=== PATIENT | male | born 1970 | race Caucasian/White ===

== ENCOUNTER 2018-09-19 10:42 | Inpatient (IN) | payer OTHER ==
[~2018-09-19] VITALS: Ht 185.4 cm; Wt 154.2 kg
[2018-09-19] MEDS ORDERED: IV NORMAL SALINE 1000ML BAG 1,000 ML IV SCH (11:18)
[2018-09-19 11:28] LABS: BASO # 0.1 x10^3/uL (0.0-0.2); BASO % 1 % (0-3); EOS # 0.3 x10^3/uL (0.0-0.7); EOS % 3 % (0-3); HEMATOCRIT 41.8 % (39.0-53.0); HEMOGLOBIN 14.2 g/dL (13.0-17.5); LYMPH # 1.6 x10^3/uL (1.0-4.8); LYMPH % 13 % (24-48); MEAN CORPUSCULAR HEMOGLOBIN 33 pg (25-35); MEAN CORPUSCULAR HGB CONC 34 g/dL (31-37); MEAN CORPUSCULAR VOLUME 98 fL (79-100); MONO # 0.9 x10^3/uL (0.0-1.1); MONO % 8 % (0-9); NEUT # 8.9 x10^3uL (1.8-7.7); NEUT % 75 % (31-73); PLATELET COUNT 305 x10^3/uL (140-400); RED BLOOD COUNT 4.29 x10^6/uL (4.30-5.70); RED CELL DISTRIBUTION WIDTH 13.8 % (11.5-14.5); WHITE BLOOD COUNT 11.9 x10^3/uL (4.0-11.0)
--- NOTE | 2018-09-19 11:28 | PHYS DOC ---
Past Medical History Past Medical History: Hypertension Past Surgical History: Other Additional Past Surgical Histo: hand surgery Alcohol Use: None Drug Use: None Adult General Chief Complaint Chief Complaint: ABSCESS HPI HPI patient is a 48-year-old male who presents to the emergency department for evaluation. He states for the past week, he has had gradually worsening perineal pain. He saw his primary care provider about a week ago who thought he had a gluteal strain, but the patient began running fevers over the past 2 days. He saw his primary care provider today and was sent to the emergency department for evaluation of a perirectal abscess. The patient denies any purulent drainage, but states he did have a small amount of blood when wiping himself after having a bowel movement being yesterday. He has not had any painful bowel movements. He denies any abdominal pain, nausea, or vomiting. He denies any definite injuries. There are no alleviating, or exacerbating factors to his symptoms otherwise. Review of Systems Review of Systems Constitutional: Denies weight loss, fatigue, or dizziness.[] Eyes: Denies change in visual acuity, redness, or eye pain [] HENT: Denies nasal congestion or sore throat [] Respiratory: Denies cough or shortness of breath [] Cardiovascular: The patient denies any shortness of breath, chest pain, palpitations, or orthopnea. [] GI: Denies abdominal pain, nausea, vomiting, bloody stools or diarrhea [] : Denies dysuria or hematuria. Reports perineal pain, as per history of present illness. [] Musculoskeletal: Denies back pain or joint pain [] Integument: Denies rash or skin lesions [] Neurologic: Denies headache, focal weakness or sensory changes [] Endocrine: Denies polyuria or polydipsia [] All other systems were reviewed and found to be within normal limits, except as documented in this note. Current Medications Current Medications Current Medications Medications (Trade) Dose Ordered Sig/Darrick Start Time Stop Time Status Last Admin Dose Admin Ciprofloxacin/ Dextrose 200 ml @ 200 mls/hr 1X ONCE 09/19/18 11:30 09/19/18 12:29 DC 09/19/18 11:57 200 MLS/HR Info (CONTRAST GIVEN -- Rx MONITORING) 1 each PRN DAILY PRN 09/19/18 11:45 09/21/18 11:44 Iohexol (Omnipaque 300 Mg/ml) 75 ml 1X ONCE 09/19/18 11:30 09/19/18 11:31 DC 09/19/18 11:30 75 ML Metronidazole 100 ml @ 100 mls/hr 1X ONCE 09/19/18 11:30 09/19/18 12:29 DC 09/19/18 11:56 100 MLS/HR Morphine Sulfate (Morphine Sulfate) 4 mg PRN Q15MIN PRN 09/19/18 11:30 09/20/18 11:29 09/19/18 11:55 4 MG Sodium Chloride 1,000 ml @ 100 mls/hr Q10H 09/19/18 11:18 09/19/18 21:17 09/19/18 11:18 100 MLS/HR Allergies Allergies Allergies Coded Allergies Type Severity Reaction Last Updated Verified No Known Drug Allergies 09/19/18 No Physical Exam Physical Exam PHYSICAL EXAM: CONSTITUTIONAL: Well developed, well nourished HEAD: normocephalic, atraumatic EENT: PERRL, EOMI. Conjunctivae normal color, sclerae non-icteric; moist mucous membranes. NECK: Supple, non-tender; no meningismus. LUNGS: Lungs CTA, breathing even and unlabored. Normal air movement. HEART: Regular rate and rhythm, no murmur CHEST: No deformity; non-tender ABDOMEN: The abdomen is soft, and non-tender, no masses or bruits. EXTREM: Normal ROM; no deformity, no calf tenderness. Normal pulses palpable in all extremities. There is no pedal edema. SKIN: No rash; no diaphoresis NEURO: Alert; normal speech and cognition; CN's grossly intact; strength grossly intact without focal deficit. BACK: No CVA TTP. GENITOURINARY: Male genitalia are unremarkable. The scrotum is nontender and nonerythematous. On the anterior and left anterior perianal area, there is mild skin erythema, and soft tissue swelling, with tenderness to palpation, suggestive of the perianal and possible perirectal abscess. There is no definite fluctuance or significant tenderness to palpation of the perirectal tissues on rectal exam. Current Patient Data Vital Signs Vital Signs Date Time Temp Pulse Resp B/P (MAP) Pulse Ox O2 Delivery O2 Flow Rate FiO2 09/19/18 11:55 98 Room Air 09/19/18 11:04 97.6 114 20 174/81 (112) 97.6 Lab Values Laboratory Tests Test 09/19/18 11:18 White Blood Count 11.9 x10^3/uL (4.0-11.0) H Red Blood Count 4.29 x10^6/uL (4.30-5.70) L Hemoglobin 14.2 g/dL (13.0-17.5) Hematocrit 41.8 % (39.0-53.0) Mean Corpuscular Volume 98 fL (79-100) Mean Corpuscular Hemoglobin 33 pg (25-35) Mean Corpuscular Hemoglobin Concent 34 g/dL (31-37) Red Cell Distribution Width 13.8 % (11.5-14.5) Platelet Count 305 x10^3/uL (140-400) Neutrophils (%) (Auto) 75 % (31-73) H Lymphocytes (%) (Auto) 13 % (24-48) L Monocytes (%) (Auto) 8 % (0-9) Eosinophils (%) (Auto) 3 % (0-3) Basophils (%) (Auto) 1 % (0-3) Neutrophils # (Auto) 8.9 x10^3uL (1.8-7.7) H Lymphocytes # (Auto) 1.6 x10^3/uL (1.0-4.8) Monocytes # (Auto) 0.9 x10^3/uL (0.0-1.1) Eosinophils # (Auto) 0.3 x10^3/uL (0.0-0.7) Basophils # (Auto) 0.1 x10^3/uL (0.0-0.2) Sodium Level 138 mmol/L (136-145) Potassium Level 3.2 mmol/L (3.5-5.1) L Chloride Level 97 mmol/L (98-107) L Carbon Dioxide Level 30 mmol/L (21-32) Anion Gap 11 (6-14) Blood Urea Nitrogen 19 mg/dL (8-26) Creatinine 1.6 mg/dL (0.7-1.3) H Estimated GFR (Cockcroft-Gault) 46.8 BUN/Creatinine Ratio 12 (6-20) Glucose Level 106 mg/dL (70-99) H Calcium Level 9.6 mg/dL (8.5-10.1) Total Bilirubin 0.6 mg/dL (0.2-1.0) Aspartate Amino Transferase (AST) 14 U/L (15-37) L Alanine Aminotransferase (ALT) 24 U/L (16-63) Alkaline Phosphatase 80 U/L (46-116) Total Protein 8.0 g/dL (6.4-8.2) Albumin 3.1 g/dL (3.4-5.0) L Albumin/Globulin Ratio 0.6 (1.0-1.7) L Laboratory Tests 09/19/18 11:18 Laboratory Tests 09/19/18 11:18 EKG EKG [] Radiology/Procedures Radiology/Procedures [PROCEDURE: CT PELVIS W/CONTRAST CT of the pelvis with contrast, 09/19/2018: HISTORY: Left perirectal abscess Multidetector CT imaging was performed following an IV bolus injection of iodinated contrast material. No oral contrast material was administered for this study. There is a poorly marginated low density process in the perineum on the left centered along the anterolateral margin of the anus and distal rectum. It measures approximately 6.7 cm in greatest AP dimension, 4 cm in width and 8.7 cm in craniocaudad extent. Its internal density suggests complex fluid such as an abscess. There is mild adjacent streaky subcutaneous edema. No associated gas collections are seen. No iliac or inguinal adenopathy is evident. The bowel loops are not dilated. The urinary bladder is unremarkable. Several prostatic calcifications are noted. No free fluid or free air is evident in the pelvis. Surgical clips related to the upper scrotum are compatible with a prior vasectomy. IMPRESSION: Moderate sized left perirectal fluid collection as described above, compatible with the clinical impression of abscess. ] Course & Med Decision Making Course & Med Decision Making Pertinent Labs and Imaging studies reviewed. (See chart for details) 1:50 PM: The patient's condition remained stable. I spoke with Dr. Langford, Gen. surgery, who requested that the hospitalist admit the patient and he will see the patient in consultation. The hospitalist has been paged for admission. [] Dragon Disclaimer Dragon Disclaimer This electronic medical record was generated, in whole or in part, using a voice recognition dictation system. Departure Departure Impression: Primary Impression: Perirectal abscess Disposition: 09 ADMITTED INPATIENT Admitting Physician: Other Condition: STABLE Referrals: UNKNOWN PCP NAME (PCP) ISAAC SCHAFER MD Sep 19, 2018 11:28
[2018-09-19] MEDS ORDERED: CIPROFLOXACIN 400MG PREMIX 200 ML IV ONE (11:30)
[2018-09-19] MEDS ORDERED: IOHEXOL 300 MG/ML 100ML VIAL. IV ONE (11:30)
[2018-09-19] MEDS ORDERED: CONTRAST GIVEN. MC PRN (11:45)
[2018-09-19 11:50] LABS: CALCIUM 9.6 mg/dL (8.5-10.1); CREATININE 1.6 mg/dL (0.7-1.3); GFR 46.8; POTASSIUM 3.2 mmol/L (3.5-5.1)
[2018-09-19 11:55] LABS: ALBUMIN 3.1 g/dL (3.4-5.0); ALBUMIN/GLOBULIN RATIO 0.6 (1.0-1.7); TOTAL BILIRUBIN 0.6 mg/dL (0.2-1.0)
[2018-09-19] MEDS: MORPHINE SULFATE 4 MG/ML VIAL. IV/SQ PRN ×2 (11:55→13:54)
--- NOTE | 2018-09-19 12:47 | RAD ---
CT of the pelvis with contrast, 09/19/2018: HISTORY: Left perirectal abscess Multidetector CT imaging was performed following an IV bolus injection of iodinated contrast material. No oral contrast material was administered for this study. There is a poorly marginated low density process in the perineum on the left centered along the anterolateral margin of the anus and distal rectum. It measures approximately 6.7 cm in greatest AP dimension, 4 cm in width and 8.7 cm in craniocaudad extent. Its internal density suggests complex fluid such as an abscess. There is mild adjacent streaky subcutaneous edema. No associated gas collections are seen. No iliac or inguinal adenopathy is evident. The bowel loops are not dilated. The urinary bladder is unremarkable. Several prostatic calcifications are noted. No free fluid or free air is evident in the pelvis. Surgical clips related to the upper scrotum are compatible with a prior vasectomy. IMPRESSION: Moderate sized left perirectal fluid collection as described above, compatible with the clinical impression of abscess. Electronically signed by: Everton Petty MD (09/19/2018 12:44 PM) [facility]
--- NOTE | 2018-09-19 14:13 | PDOC1 ---
History and Physical Date of Admission Date of Admission DATE: 09/19/18 TIME: 14:09 Identification/Chief Complaint Chief Complaint Rectal pain Source Source: Patient History of Present Illness History of Present Illness 48-year-old male w/ PMHx HTN, morbid obesity p/w left gluteal and perineal pain. For 1 week has had gradually worsening perineal pain. Saw his PCP a week ago who thought he had a gluteal strain, but the patient began running fevers over the past 2 days. He returned to his PCP today and was sent to the ED for concern of a perirectal abscess. The patient denies any purulent drainage, but states he did have a small amount of blood when wiping himself after having a bowel movement being yesterday. No abdominal pain, nausea, or vomiting. No precipitating event. There are no alleviating, or exacerbating factors to his symptoms otherwise. Pain is rated a 2/10 when he lays on his right side, but 10/ 10 when he moves or is seated/standing/on his left side. On CT scan he was noted with a moderate-large left herminia-rectal fluid collection. ED has consulted general surgery for I&D. He was noted tachycardic 114bpm, WBC 11.9, given IVF 30cc/kg/hr and placed on cipro and flagyll by ED and will be admitted for further care. He is a senior project controls specialist by [employer], lives with his and 3 teenage children. Ex-smoker, social drinker, no drugs of abuse. Past Medical History Cardiovascular: HTN GI: No pertinent hx Heme/Onc: No pertinent hx Hepatobiliary: No pertinent hx Psych: No pertinent hx Rheumatologic: No pertinent hx Infectious disease: No pertinent hx ENT: No pertinent hx Renal/: No pertinent hx Endocrine: No pertinent hx Dermatology: No pertinent hx Past Surgical History Past Surgical History: Other (Ganglion cyst removal R hand, wisdom teeth removal, no abnormal bleeding, no anesthesia complications) Family History Family History: Cancer (Breast and testicular), Hypertension Family History: Parent (Mother - breast cancer, Father - testicular cancer, HTN ) Social History Smoke: Quit (13 years quit) ALCOHOL: rare Drugs: None Current Problem List Problem List Problems Medical Problems: (1) Perirectal abscess Status: Acute Current Medications Current Medications Current Medications Morphine Sulfate (Morphine Sulfate) 4 mg PRN Q15MIN PRN IV/SQ PAIN GREATER THAN 3/10 Last administered on 09/19/18at 13:54; Start 09/19/18 at 11:30; Stop 09/20/18 at 11:29 Sodium Chloride 1,000 ml @ 100 mls/hr Q10H IV Last administered on 09/19/18at 11:18; Start 09/19/18 at 11:18; Stop 09/19/18 at 21:17 Ciprofloxacin/ Dextrose 200 ml @ 200 mls/hr 1X ONCE IV Last administered on 09/19/18at 11:57; Start 09/19/18 at 11:30; Stop 09/19/18 at 12:29; Status DC Metronidazole 100 ml @ 100 mls/hr 1X ONCE IV Last administered on 09/19/18at 11:56; Start 09/19/18 at 11:30; Stop 09/19/18 at 12:29; Status DC Iohexol (Omnipaque 300 Mg/ml) 75 ml 1X ONCE IV Last administered on at 11:30; Start 09/19/18 at 11:30; Stop 09/19/18 at 11:31; Status DC Info (CONTRAST GIVEN -- Rx MONITORING) 1 each PRN DAILY PRN MC SEE COMMENTS; Start 09/19/18 at 11:45; Stop 09/21/18 at 11:44 Allergies Allergies: Coded Allergies: No Known Drug Allergies (Unverified , 09/19/18) ROS General: YES: Chills, Night Sweats PSYCHOLOGICAL ROS: No: Anxiety, Behavioral Disorder, Concentration difficultie , Decreased libido, Depression, Disorientation, Hallucinations, Hostility, Irritablity, Memory difficulties, Mood Swings, Obsessive thoughts, Physical abuse, Sexual abuse, Sleep disturbances, Suicidal ideation, Other Eyes: Yes Itchy Eyes; No Blurry vision, No Decreased vision, No Double vision, No Dry eyes, No Excessive tearing, No Eye Pain, No Loss of vision, No Photophobia, No Scotomata , No Uses contacts, No Uses glasses, No Other HEENT: No: Heacaches, Visual Changes, Hearing change, Nasal congestion, Nasal discharge, Oral lesions, Sinus pain, Sore Throat, Epistaxis, Sneezing, Snoring, Tinnitus, Vertigo, Vocal changes, Other ALLERGY AND IMMUNOLOGY: No: Hives, Insect Bite Sensitivity, Itchy/Watery Eyes, Nasal Congestion, Post Nasal Drip, Seasonal Allergies, Other Hematological and Lymphatic: No: Bleeding Problems, Blood Clots, Blood Transfusions, Brusing, Night Sweats, Pallor, Swollen Lymph Nodes, Other ENDOCRINE: No: Breast Changes, Galactorrhea, Hair Pattern Changes, Hot Flashes , Malaise/lethargy, Mood Swings, Palpitations, Polydipsia/polyuria, Skin Changes , Temperature Intolerance, Unexpected Weight Changes, Other Breast: No New/Changing Breast Lumps, No Nipple changes, No Nipple discharge, No Other Respiratory: No: Cough, Hemoptysis, Orthopnea, Pleuritic Pain, Shortness of breath, SOB with excertion, Sputum Changes, Stridor, Tachypnea, Wheezing, Other Cardiovascular: No Chest Pain, No Palpitations, No Orthopnea, No Paroxysmal Noc. Dyspnea, No Edema, No Lt Headedness, No Other Gastrointestinal: No Nausea, No Vomiting, No Abdominal Pain, No Diarrhea, No Constipation, No Melena, No Hematochezia, No Other Genitourinary: No Dysuria, No Frequency, No Incontinence, No Hematuria, No Retention, No Discharge, No Urgency, No Pain, No Flank Pain, No Other, No , No , No , No , No , No , No Musculoskeletal: No Gait Disturbance, No Joint Pain, No Joint Stiffness, No Joint Swelling, No Muscle Pain, No Muscular Weakness, No Pain In:, No Swelling In:, No Other Neurological: No Behavorial Changes, No Bowel/Bladder ControlChng, No Confusion , No Dizziness, No Gait Disturbance, No Headaches, No Impaired Coord/balance, No Memory Loss, No Numbness/Tingling, No Seizures, No Speech Problems, No Tremors, No Visual Changes, No Weakness, No Other Skin: Yes Lumps, Yes Skin Lesion Changes; No Dry Skin, No Eczema, No Hair Changes, No Mole Changes, No Mottling, No Nail Changes, No Pruritus, No Rash, No Other, No Acne Physical Exam General: Alert, Oriented X3, Cooperative, No acute distress HEENT: PERRLA Lungs: Clear to auscultation, Normal air movement Heart: S1S2, RRR, no murmurs Abdomen: Normal bowel sounds, Soft, No tenderness, No hepatosplenomegaly, No masses Male Genitals Exam: normal genitalia, normal prostate Rectal Exam: mass (Left perirectal fluctuant, exquisitely painful, red) Extremities: No clubbing, No cyanosis, No edema, Normal pulses, No tenderness/ swelling Skin: No rashes, No breakdown, No significant lesion, Other (Above perirectal mass/red) Neuro: Normal gait, Normal speech, Strength at 5/5 X4 ext, Normal tone, Sensation intact, Cranial nerves 3-12 NL, Reflexes 2+ Psych/Mental Status: Mental status NL, Mood NL Vitals Vitals Vital Signs Date Time Temp Pulse Resp B/P (MAP) Pulse Ox O2 Delivery O2 Flow Rate FiO2 09/19/18 11:55 98 Room Air 09/19/18 11:04 97.6 114 20 174/81 (112) 97.6 Labs Labs Laboratory Tests Test 09/19/18 11:18 White Blood Count 11.9 x10^3/uL (4.0-11.0) Red Blood Count 4.29 x10^6/uL (4.30-5.70) Hemoglobin 14.2 g/dL (13.0-17.5) Hematocrit 41.8 % (39.0-53.0) Mean Corpuscular Volume 98 fL (79-100) Mean Corpuscular Hemoglobin 33 pg (25-35) Mean Corpuscular Hemoglobin Concent 34 g/dL (31-37) Red Cell Distribution Width 13.8 % (11.5-14.5) Platelet Count 305 x10^3/uL (140-400) Neutrophils (%) (Auto) 75 % (31-73) Lymphocytes (%) (Auto) 13 % (24-48) Monocytes (%) (Auto) 8 % (0-9) Eosinophils (%) (Auto) 3 % (0-3) Basophils (%) (Auto) 1 % (0-3) Neutrophils # (Auto) 8.9 x10^3uL (1.8-7.7) Lymphocytes # (Auto) 1.6 x10^3/uL (1.0-4.8) Monocytes # (Auto) 0.9 x10^3/uL (0.0-1.1) Eosinophils # (Auto) 0.3 x10^3/uL (0.0-0.7) Basophils # (Auto) 0.1 x10^3/uL (0.0-0.2) Sodium Level 138 mmol/L (136-145) Potassium Level 3.2 mmol/L (3.5-5.1) Chloride Level 97 mmol/L (98-107) Carbon Dioxide Level 30 mmol/L (21-32) Anion Gap 11 (6-14) Blood Urea Nitrogen 19 mg/dL (8-26) Creatinine 1.6 mg/dL (0.7-1.3) Estimated GFR (Cockcroft-Gault) 46.8 BUN/Creatinine Ratio 12 (6-20) Glucose Level 106 mg/dL (70-99) Calcium Level 9.6 mg/dL (8.5-10.1) Total Bilirubin 0.6 mg/dL (0.2-1.0) Aspartate Amino Transf (AST/SGOT) 14 U/L (15-37) Alanine Aminotransferase (ALT/SGPT) 24 U/L (16-63) Alkaline Phosphatase 80 U/L (46-116) Total Protein 8.0 g/dL (6.4-8.2) Albumin 3.1 g/dL (3.4-5.0) Albumin/Globulin Ratio 0.6 (1.0-1.7) Laboratory Tests Test 09/19/18 11:18 White Blood Count 11.9 x10^3/uL (4.0-11.0) Red Blood Count 4.29 x10^6/uL (4.30-5.70) Hemoglobin 14.2 g/dL (13.0-17.5) Hematocrit 41.8 % (39.0-53.0) Mean Corpuscular Volume 98 fL (79-100) Mean Corpuscular Hemoglobin 33 pg (25-35) Mean Corpuscular Hemoglobin Concent 34 g/dL (31-37) Red Cell Distribution Width 13.8 % (11.5-14.5) Platelet Count 305 x10^3/uL (140-400) Neutrophils (%) (Auto) 75 % (31-73) Lymphocytes (%) (Auto) 13 % (24-48) Monocytes (%) (Auto) 8 % (0-9) Eosinophils (%) (Auto) 3 % (0-3) Basophils (%) (Auto) 1 % (0-3) Neutrophils # (Auto) 8.9 x10^3uL (1.8-7.7) Lymphocytes # (Auto) 1.6 x10^3/uL (1.0-4.8) Monocytes # (Auto) 0.9 x10^3/uL (0.0-1.1) Eosinophils # (Auto) 0.3 x10^3/uL (0.0-0.7) Basophils # (Auto) 0.1 x10^3/uL (0.0-0.2) Sodium Level 138 mmol/L (136-145) Potassium Level 3.2 mmol/L (3.5-5.1) Chloride Level 97 mmol/L (98-107) Carbon Dioxide Level 30 mmol/L (21-32) Anion Gap 11 (6-14) Blood Urea Nitrogen 19 mg/dL (8-26) Creatinine 1.6 mg/dL (0.7-1.3) Estimated GFR (Cockcroft-Gault) 46.8 BUN/Creatinine Ratio 12 (6-20) Glucose Level 106 mg/dL (70-99) Calcium Level 9.6 mg/dL (8.5-10.1) Total Bilirubin 0.6 mg/dL (0.2-1.0) Aspartate Amino Transf (AST/SGOT) 14 U/L (15-37) Alanine Aminotransferase (ALT/SGPT) 24 U/L (16-63) Alkaline Phosphatase 80 U/L (46-116) Total Protein 8.0 g/dL (6.4-8.2) Albumin 3.1 g/dL (3.4-5.0) Albumin/Globulin Ratio 0.6 (1.0-1.7) VTE Prophylaxis Ordered VTE Prophylaxis Devices: Yes VTE Pharmacological Prophylaxi: No Assessment/Plan Assessment/Plan A/P: Perirectal abscess - with signs of early sepsis with leukocytosis, tachycardia and fever and chills at home. To OR today for I&D, low cardiac risk for low risk surgery. Non-smoker less than age 50, no CAD in 1st degree relatives, managed HTN on meds. Antibiotics may need to be adjusted to cover for strep and staph, will f/u on cultures from OR HTN - will cont home meds Morbid obesity - counseled on weight loss, diet, exercise. IFG/Prediabetes - last A1c was 5.9, recommend new AACE guidelines to consider metformin therapy or orlistat, will check glucose and cover with low sliding scale as necessary FEN - NPO for OR - general diet when ok by surgery PPX - Heparin 4 hours post-op vs SCDs if he is able to ambulate FULL CODE Wards for at least 2 midnights for perirectal abscess with signs of cellulitis and sepsis HARIKA ANTHONY MD Sep 19, 2018 14:12
[2018-09-19] MEDS ORDERED: BUPIVAC MPF-EPI 0.5%-1:200000 30 ML VIAL. ONE (14:16)
[2018-09-19] MEDS ORDERED: IV DEXTROSE 5%-LACT RINGERS 1,000 ML IV ONE (14:30)
[2018-09-19] MEDS ORDERED: ONDANSETRON PF 4 MG/2 ML VIAL. ONE (15:07)
[2018-09-19] MEDS ORDERED: DEXAMETHASONE SOD PHOS 20 MG/5 ML VIAL. ONE (15:07)
[2018-09-19] MEDS ORDERED: fentaNYL PF VIAL 100 MCG/2 ML VIAL ONE (15:07)
[2018-09-19] MEDS ORDERED: FAMOTIDINE 20 MG/2 ML VIAL ONE (15:07)
[2018-09-19] MEDS ORDERED: LIDOCAINE 1% PF 5 ML VIAL. ONE ×2 (15:07→15:29)
[2018-09-19] MEDS ORDERED: PROPOFOL 20 ML IV ONE (15:07)
[2018-09-19] MEDS ORDERED: SUCCINYLCHOLINE 200 MG/10 ML VIAL. ONE (15:07)
--- NOTE | 2018-09-19 15:17 | PDOC2 ---
CONSULT Date of Consult Date of Consult DATE: 09/19/18 TIME: 15:13 Reason for Consult Reason for Consult: Left perirectal abscess Referring Physician Referring Physician: Marissa Identification/Chief Complaint Chief Complaint buttock pain Source Source: Chart review, Patient History of Present Illness Reason for Visit: 48 yo M with 2 week hx of perianal pain, worsening. Noted fevers in afternoon. No significant drainage. No previous episodes. Past Medical History Cardiovascular: HTN Past Surgical History Past Surgical History: Other (hand surgery, vascectomy) Family History Family History: No Significant Social History No ALCOHOL: other (1 unit per day) Current Problem List Problem List Problems Medical Problems: (1) Perirectal abscess Status: Acute Current Medications Current Medications Current Medications Morphine Sulfate (Morphine Sulfate) 4 mg PRN Q15MIN PRN IV/SQ PAIN GREATER THAN 3/10 Last administered on 09/19/18at 13:54; Start 09/19/18 at 11:30; Stop 09/20/18 at 11:29 Sodium Chloride 1,000 ml @ 100 mls/hr Q10H IV Last administered on 09/19/18at 11:18; Start 09/19/18 at 11:18; Stop 09/19/18 at 21:17 Ciprofloxacin/ Dextrose 200 ml @ 200 mls/hr 1X ONCE IV Last administered on 09/19/18at 11:57; Start 09/19/18 at 11:30; Stop 09/19/18 at 12:29; Status DC Metronidazole 100 ml @ 100 mls/hr 1X ONCE IV Last administered on 09/19/18at 11:56; Start 09/19/18 at 11:30; Stop 09/19/18 at 12:29; Status DC Iohexol (Omnipaque 300 Mg/ml) 75 ml 1X ONCE IV Last administered on at 11:30; Start 09/19/18 at 11:30; Stop 09/19/18 at 11:31; Status DC Info (CONTRAST GIVEN -- Rx MONITORING) 1 each PRN DAILY PRN MC SEE COMMENTS; Start 09/19/18 at 11:45; Stop 09/21/18 at 11:44 Morphine Sulfate (Morphine Sulfate) 4 mg PRN Q2HR PRN IV PAIN; Start 09/19/18 at 14:15; Stop 09/20/18 at 14:14 Dextrose/Lactated Ringer's 1,000 ml @ 125 mls/hr 1X ONCE IV ; Start 09/19/18 at 14:30; Stop 09/19/18 at 22:29 Propofol 20 ml @ As Directed STK-MED ONCE IV ; Start 09/19/18 at 15:07; Stop 09/19/18 at 15:08; Status DC Ondansetron HCl (Zofran) 4 mg STK-MED ONCE .ROUTE ; Start 09/19/18 at 15:07; Stop 09/19/18 at 15:08; Status DC Dexamethasone Sodium Phosphate (Decadron) 20 mg STK-MED ONCE .ROUTE ; Start at 15:07; Stop 09/19/18 at 15:08; Status DC Famotidine (Pepcid Vial) 20 mg STK-MED ONCE .ROUTE ; Start 09/19/18 at 15:07; Stop 09/19/18 at 15:08; Status DC Fentanyl Citrate (Fentanyl 2ml Vial) 100 mcg STK-MED ONCE .ROUTE ; Start at 15:07; Stop 09/19/18 at 15:08; Status DC Succinylcholine Chloride (Anectine) 200 mg STK-MED ONCE .ROUTE ; Start at 15:07; Stop 09/19/18 at 15:08; Status DC Lidocaine HCl (Xylocaine-Mpf 1% 5ml Vial) 5 ml STK-MED ONCE .ROUTE ; Start at 15:07; Stop 09/19/18 at 15:08; Status DC Allergies Allergies: Coded Allergies: No Known Drug Allergies (Unverified , 09/19/18) ROS Gastrointestinal: Yes Abdominal Pain Physical Exam General: Alert, Oriented X3, Cooperative, No acute distress HEENT: Atraumatic Lungs: Normal air movement Abdomen: Soft, No tenderness, Other (rectal exam deferred) Extremities: No clubbing, No cyanosis Skin: No rashes, No breakdown Neuro: Normal speech, Sensation intact Psych/Mental Status: Mental status NL, Mood NL Vitals VITALS Vital Signs Date Time Temp Pulse Resp B/P (MAP) Pulse Ox O2 Delivery O2 Flow Rate FiO2 09/19/18 15:05 98.1 98 20 110/70 99 Room Air 98.1 Labs Labs Laboratory Tests Test 09/19/18 11:18 White Blood Count 11.9 x10^3/uL (4.0-11.0) Red Blood Count 4.29 x10^6/uL (4.30-5.70) Hemoglobin 14.2 g/dL (13.0-17.5) Hematocrit 41.8 % (39.0-53.0) Mean Corpuscular Volume 98 fL (79-100) Mean Corpuscular Hemoglobin 33 pg (25-35) Mean Corpuscular Hemoglobin Concent 34 g/dL (31-37) Red Cell Distribution Width 13.8 % (11.5-14.5) Platelet Count 305 x10^3/uL (140-400) Neutrophils (%) (Auto) 75 % (31-73) Lymphocytes (%) (Auto) 13 % (24-48) Monocytes (%) (Auto) 8 % (0-9) Eosinophils (%) (Auto) 3 % (0-3) Basophils (%) (Auto) 1 % (0-3) Neutrophils # (Auto) 8.9 x10^3uL (1.8-7.7) Lymphocytes # (Auto) 1.6 x10^3/uL (1.0-4.8) Monocytes # (Auto) 0.9 x10^3/uL (0.0-1.1) Eosinophils # (Auto) 0.3 x10^3/uL (0.0-0.7) Basophils # (Auto) 0.1 x10^3/uL (0.0-0.2) Sodium Level 138 mmol/L (136-145) Potassium Level 3.2 mmol/L (3.5-5.1) Chloride Level 97 mmol/L (98-107) Carbon Dioxide Level 30 mmol/L (21-32) Anion Gap 11 (6-14) Blood Urea Nitrogen 19 mg/dL (8-26) Creatinine 1.6 mg/dL (0.7-1.3) Estimated GFR (Cockcroft-Gault) 46.8 BUN/Creatinine Ratio 12 (6-20) Glucose Level 106 mg/dL (70-99) Calcium Level 9.6 mg/dL (8.5-10.1) Total Bilirubin 0.6 mg/dL (0.2-1.0) Aspartate Amino Transf (AST/SGOT) 14 U/L (15-37) Alanine Aminotransferase (ALT/SGPT) 24 U/L (16-63) Alkaline Phosphatase 80 U/L (46-116) Total Protein 8.0 g/dL (6.4-8.2) Albumin 3.1 g/dL (3.4-5.0) Albumin/Globulin Ratio 0.6 (1.0-1.7) Laboratory Tests Test 09/19/18 11:18 White Blood Count 11.9 x10^3/uL (4.0-11.0) Red Blood Count 4.29 x10^6/uL (4.30-5.70) Hemoglobin 14.2 g/dL (13.0-17.5) Hematocrit 41.8 % (39.0-53.0) Mean Corpuscular Volume 98 fL (79-100) Mean Corpuscular Hemoglobin 33 pg (25-35) Mean Corpuscular Hemoglobin Concent 34 g/dL (31-37) Red Cell Distribution Width 13.8 % (11.5-14.5) Platelet Count 305 x10^3/uL (140-400) Neutrophils (%) (Auto) 75 % (31-73) Lymphocytes (%) (Auto) 13 % (24-48) Monocytes (%) (Auto) 8 % (0-9) Eosinophils (%) (Auto) 3 % (0-3) Basophils (%) (Auto) 1 % (0-3) Neutrophils # (Auto) 8.9 x10^3uL (1.8-7.7) Lymphocytes # (Auto) 1.6 x10^3/uL (1.0-4.8) Monocytes # (Auto) 0.9 x10^3/uL (0.0-1.1) Eosinophils # (Auto) 0.3 x10^3/uL (0.0-0.7) Basophils # (Auto) 0.1 x10^3/uL (0.0-0.2) Sodium Level 138 mmol/L (136-145) Potassium Level 3.2 mmol/L (3.5-5.1) Chloride Level 97 mmol/L (98-107) Carbon Dioxide Level 30 mmol/L (21-32) Anion Gap 11 (6-14) Blood Urea Nitrogen 19 mg/dL (8-26) Creatinine 1.6 mg/dL (0.7-1.3) Estimated GFR (Cockcroft-Gault) 46.8 BUN/Creatinine Ratio 12 (6-20) Glucose Level 106 mg/dL (70-99) Calcium Level 9.6 mg/dL (8.5-10.1) Total Bilirubin 0.6 mg/dL (0.2-1.0) Aspartate Amino Transf (AST/SGOT) 14 U/L (15-37) Alanine Aminotransferase (ALT/SGPT) 24 U/L (16-63) Alkaline Phosphatase 80 U/L (46-116) Total Protein 8.0 g/dL (6.4-8.2) Albumin 3.1 g/dL (3.4-5.0) Albumin/Globulin Ratio 0.6 (1.0-1.7) Images Images CT with moderate size left perirectal abscess Assessment/Plan Assessment/Plan Perirectal abscess IV abx and hydration TO OR for i and D perirectal abscess R/R/B/A d/w pt. Risks, including, but not limited to: bleeding, infection, damage to surrounding structures, risk of anesthesia. He appears to understand , his questions are answered and he elects to proceed. Thanks for consult! DIONTE PHAM MD Sep 19, 2018 15:17
[2018-09-19] MEDS ORDERED: ACETAMINOPHEN 325 MG TABLET. PO PRN (16:00)
[2018-09-19] MEDS ORDERED: PROCHLORPERAZINE 10 MG/2 ML VIAL. IV PRN (16:00)
[2018-09-19] MEDS ORDERED: HYDROcodone/APAP 5/325MG 1 TAB TABLET PO PRN ×3 (16:00→16:15)
[2018-09-19] MEDS ORDERED: MAGNESIUM HYDROXIDE 2,400 MG/30 ML ORAL.SUSP. PO PRN (16:00)
[2018-09-19] MEDS ORDERED: ZOLPIDEM 5 MG TABLET. PO PRN (16:00)
[2018-09-19] MEDS ORDERED: LACTULOSE 20 GM/30 ML SOLUTION. PO PRN (16:00)
[2018-09-19] MEDS ORDERED: ONDANSETRON PF 4 MG/2 ML VIAL. IV PRN ×2 (16:00→16:15)
[2018-09-19] MEDS ORDERED: DESFLURANE 16 TO 30 MINUTES. IH ONE (16:05)
[2018-09-19] MEDS ORDERED: 0.9 % SODIUM CHLORIDE 10 ML DISP.SYRIN. IV PRN (16:15)
[2018-09-19] MEDS ORDERED: MORPHINE SULFATE 2 MG/ML VIAL. IV PRN (16:15)
--- NOTE | 2018-09-19 16:17 | PDOC4 ---
OPERATIVE NOTE Date: Date: Sep 19, 2018 Pre-Op Diagnosis: Left perirectal abscess Post-Op Diagnosis: same Procedure Performed: Incision and drainage of large left perirectal abscess Surgeon: Abiel Pham Anesthesia Type: GETA Blood Loss: 50 Specimans Obtained: cultures Findings: large left perirectal, perineal abscess Complications: none Operative Note: After obtaining informed consent, patient was taken to OR, induced under GETA and prepped in the usual fashion in a high lithotomy position. A large left perirectal abscess was identified. 15 blade scalpel was used to open the abscess. Large amount of purulent material with foul odor was evacuated. Cultures were obtained. Wound was copiously irrigated. [place] drain was placed and brought through a posterior incision and secured with 3 0 nylon. Wound was then packed with iodoform gauze. Dressing was placed. Patient tolerated procedure well and sent to PACU in stable condition. All counts correct. Wound class is 4, dirty. DIONTE PHAM MD Sep 19, 2018 16:17
[2018-09-19 17:00] VITALS: BP 99/48
[2018-09-19 17:15] VITALS: BP 91/55
[2018-09-19 17:30] VITALS: BP 99/54
[2018-09-19 17:45] VITALS: BP 98/52
[2018-09-19] MEDS: KETOROLAC 30 MG/ML VIAL. IV PRN (18:14)
[2018-09-19] MEDS: MORPHINE SULFATE 4 MG/ML VIAL. IV PRN ×2 (18:16→21:10)
[2018-09-19 19:00] VITALS: BP 118/66
[2018-09-19] MEDS: DOCUSATE SODIUM 100 MG CAPSULE. PO SCH (21:08)
[2018-09-19] MEDS: SENNOSIDES/DOCUSATE 8.6/50MG TABLET. PO SCH (21:08)
[2018-09-19] MEDS: HEPARIN for SUB-Q USE 5,000 UNIT/ML VIAL. SQ SCH (21:19)
[2018-09-19 23:00] VITALS: BP 96/43
[2018-09-20 03:00] VITALS: BP 99/45
[2018-09-20] MEDS: KETOROLAC 30 MG/ML VIAL. IV PRN (04:33)
[2018-09-20 05:27] LABS: BASO % 0 % (0-3); EOS % 0 % (0-3); HEMATOCRIT 40.1 % (39.0-53.0); HEMOGLOBIN 13.4 g/dL (13.0-17.5); LYMPH # 1.4 x10^3/uL (1.0-4.8); LYMPH % 11 % (24-48); MEAN CORPUSCULAR HEMOGLOBIN 33 pg (25-35); MEAN CORPUSCULAR HGB CONC 34 g/dL (31-37); MEAN CORPUSCULAR VOLUME 98 fL (79-100); MONO % 8 % (0-9); NEUT # 10.6 x10^3uL (1.8-7.7); NEUT % 82 % (31-73); PLATELET COUNT 305 x10^3/uL (140-400); RED CELL DISTRIBUTION WIDTH 13.9 % (11.5-14.5); WHITE BLOOD COUNT 12.9 x10^3/uL (4.0-11.0)
[2018-09-20] MEDS: HEPARIN for SUB-Q USE 5,000 UNIT/ML VIAL. SQ SCH (06:48)
[2018-09-20 07:00] VITALS: BP 102/63
[2018-09-20] MEDS: SENNOSIDES/DOCUSATE 8.6/50MG TABLET. PO SCH (08:18)
[2018-09-20] MEDS: DOCUSATE SODIUM 100 MG CAPSULE. PO SCH (08:18)
--- NOTE | 2018-09-20 08:47 | PDOC ---
SURGICAL PROGRESS NOTE Subjective Pt feels better, jez PO Vital Signs Vital Signs Date Time Temp Pulse Resp B/P (MAP) Pulse Ox O2 Delivery O2 Flow Rate FiO2 09/20/18 07:00 97.8 69 18 102/63 (76) 94 Room Air 97.8 I&O Intake and Output 09/20/18 07:00 Intake Total 1100 ml Output Total 5 ml Balance 1095 ml Intake Oral 300 ml IV Total 800 ml Output Estimated Blood Loss 5 ml # Voids 4 General: Alert, Oriented X3, Cooperative, No acute distress Labs Laboratory Tests Test 09/19/18 11:18 09/20/18 05:05 White Blood Count 11.9 x10^3/uL (4.0-11.0) 12.9 x10^3/uL (4.0-11.0) Red Blood Count 4.29 x10^6/uL (4.30-5.70) 4.10 x10^6/uL (4.30-5.70) Hemoglobin 14.2 g/dL (13.0-17.5) 13.4 g/dL (13.0-17.5) Hematocrit 41.8 % (39.0-53.0) 40.1 % (39.0-53.0) Mean Corpuscular Volume 98 fL (79-100) 98 fL (79-100) Mean Corpuscular Hemoglobin 33 pg (25-35) 33 pg (25-35) Mean Corpuscular Hemoglobin Concent 34 g/dL (31-37) 34 g/dL (31-37) Red Cell Distribution Width 13.8 % (11.5-14.5) 13.9 % (11.5-14.5) Platelet Count 305 x10^3/uL (140-400) 305 x10^3/uL (140-400) Neutrophils (%) (Auto) 75 % (31-73) 82 % (31-73) Lymphocytes (%) (Auto) 13 % (24-48) 11 % (24-48) Monocytes (%) (Auto) 8 % (0-9) 8 % (0-9) Eosinophils (%) (Auto) 3 % (0-3) 0 % (0-3) Basophils (%) (Auto) 1 % (0-3) 0 % (0-3) Neutrophils # (Auto) 8.9 x10^3uL (1.8-7.7) 10.6 x10^3uL (1.8-7.7) Lymphocytes # (Auto) 1.6 x10^3/uL (1.0-4.8) 1.4 x10^3/uL (1.0-4.8) Monocytes # (Auto) 0.9 x10^3/uL (0.0-1.1) 1.0 x10^3/uL (0.0-1.1) Eosinophils # (Auto) 0.3 x10^3/uL (0.0-0.7) 0.0 x10^3/uL (0.0-0.7) Basophils # (Auto) 0.1 x10^3/uL (0.0-0.2) 0.0 x10^3/uL (0.0-0.2) Sodium Level 138 mmol/L (136-145) Potassium Level 3.2 mmol/L (3.5-5.1) Chloride Level 97 mmol/L (98-107) Carbon Dioxide Level 30 mmol/L (21-32) Anion Gap 11 (6-14) Blood Urea Nitrogen 19 mg/dL (8-26) Creatinine 1.6 mg/dL (0.7-1.3) Estimated GFR (Cockcroft-Gault) 46.8 BUN/Creatinine Ratio 12 (6-20) Glucose Level 106 mg/dL (70-99) Calcium Level 9.6 mg/dL (8.5-10.1) Total Bilirubin 0.6 mg/dL (0.2-1.0) Aspartate Amino Transf (AST/SGOT) 14 U/L (15-37) Alanine Aminotransferase (ALT/SGPT) 24 U/L (16-63) Alkaline Phosphatase 80 U/L (46-116) Total Protein 8.0 g/dL (6.4-8.2) Albumin 3.1 g/dL (3.4-5.0) Albumin/Globulin Ratio 0.6 (1.0-1.7) Laboratory Tests Test 09/19/18 11:18 09/20/18 05:05 White Blood Count 11.9 x10^3/uL (4.0-11.0) 12.9 x10^3/uL (4.0-11.0) Red Blood Count 4.29 x10^6/uL (4.30-5.70) 4.10 x10^6/uL (4.30-5.70) Hemoglobin 14.2 g/dL (13.0-17.5) 13.4 g/dL (13.0-17.5) Hematocrit 41.8 % (39.0-53.0) 40.1 % (39.0-53.0) Mean Corpuscular Volume 98 fL (79-100) 98 fL (79-100) Mean Corpuscular Hemoglobin 33 pg (25-35) 33 pg (25-35) Mean Corpuscular Hemoglobin Concent 34 g/dL (31-37) 34 g/dL (31-37) Red Cell Distribution Width 13.8 % (11.5-14.5) 13.9 % (11.5-14.5) Platelet Count 305 x10^3/uL (140-400) 305 x10^3/uL (140-400) Neutrophils (%) (Auto) 75 % (31-73) 82 % (31-73) Lymphocytes (%) (Auto) 13 % (24-48) 11 % (24-48) Monocytes (%) (Auto) 8 % (0-9) 8 % (0-9) Eosinophils (%) (Auto) 3 % (0-3) 0 % (0-3) Basophils (%) (Auto) 1 % (0-3) 0 % (0-3) Neutrophils # (Auto) 8.9 x10^3uL (1.8-7.7) 10.6 x10^3uL (1.8-7.7) Lymphocytes # (Auto) 1.6 x10^3/uL (1.0-4.8) 1.4 x10^3/uL (1.0-4.8) Monocytes # (Auto) 0.9 x10^3/uL (0.0-1.1) 1.0 x10^3/uL (0.0-1.1) Eosinophils # (Auto) 0.3 x10^3/uL (0.0-0.7) 0.0 x10^3/uL (0.0-0.7) Basophils # (Auto) 0.1 x10^3/uL (0.0-0.2) 0.0 x10^3/uL (0.0-0.2) Sodium Level 138 mmol/L (136-145) Potassium Level 3.2 mmol/L (3.5-5.1) Chloride Level 97 mmol/L (98-107) Carbon Dioxide Level 30 mmol/L (21-32) Anion Gap 11 (6-14) Blood Urea Nitrogen 19 mg/dL (8-26) Creatinine 1.6 mg/dL (0.7-1.3) Estimated GFR (Cockcroft-Gault) 46.8 BUN/Creatinine Ratio 12 (6-20) Glucose Level 106 mg/dL (70-99) Calcium Level 9.6 mg/dL (8.5-10.1) Total Bilirubin 0.6 mg/dL (0.2-1.0) Aspartate Amino Transf (AST/SGOT) 14 U/L (15-37) Alanine Aminotransferase (ALT/SGPT) 24 U/L (16-63) Alkaline Phosphatase 80 U/L (46-116) Total Protein 8.0 g/dL (6.4-8.2) Albumin 3.1 g/dL (3.4-5.0) Albumin/Globulin Ratio 0.6 (1.0-1.7) Problem List Problems Medical Problems: (1) Perirectal abscess Status: Acute Assessment/Plan s/p I and D will d/c packing maintain drain Ok to d/c pt home this afternoon f/u in one week for drain removal encouraged hot shower/sitz baths off work until next week DIONTE PHAM MD Sep 20, 2018 08:47
[2018-09-20 11:00] VITALS: BP 123/70
[2018-09-20] MEDS ORDERED: HYDR-2758 PO (13:43)
[2018-09-20] MEDS ORDERED: CEPH-264 PO (13:44)
[2018-09-20] MEDS ORDERED: DOCU-109 PO (13:44)
--- NOTE | 2018-09-20 13:47 | DISCH ---
DISCHARGE INSTRUCTIONS Condition on Discharge Condition on Discharge: Stable Activity After Discharge Activity Instructions for Disc: Activity as tolerated Lifting Instructions after Dis: No heavy lifting, No pulling or pushing, Do not lift >10 pounds Driving Instructions after Dis: Do not drive today Diet after Discharge Diet after Discharge: Regular Contacting the DR. after DC Call your doctor for: If your condition worsens Warfarin Follow-Up Warfarin Follow UP: see pcp 3-4 days BRITNI TIAN MD Sep 20, 2018 13:47
--- NOTE | 2018-09-20 14:00 | PDOC3 ---
Discharge Summary Date of Admission: Sep 19, 2018 Date of Discharge: Sep 20, 2018 Follow-Up: 3-5 days Admitting Diagnosis comment: discharge summary, dx===== Assessment/Plan A/P: Perirectal abscess - with signs of early sepsis with leukocytosis, tachycardia and fever and chills at home. To OR for I&D, low cardiac risk for low risk surgery. Non-smoker less than age 50, no CAD in 1st degree relatives, managed HTN on meds. Antibiotics may need to be adjusted to cover for strep and staph, will f/u on cultures from OR HTN - will cont home meds Morbid obesity - counseled on weight loss, diet, exercise. IFG/Prediabetes - last A1c was 5.9, - general diet when ok by surgery post-op vs SCDs if he is able to ambulate home on keflex 500 qid see pcp 3 days FINAL DIAGNOSIS Problems Medical Problems: (1) Perirectal abscess Status: Acute Brief Hospital Course Mr. Almeida is a 48 old [sex] who presented with [herminia-rectal abscess ] CONDITION AT DISCHARGE: Improved Discharge Medications Current Medications Morphine Sulfate (Morphine Sulfate) 4 mg PRN Q15MIN PRN IV/SQ PAIN GREATER THAN 3/10 Last administered on 09/19/18at 13:54; Start 09/19/18 at 11:30; Stop 09/20/18 at 11:29; Status DC Sodium Chloride 1,000 ml @ 100 mls/hr Q10H IV Last administered on 09/19/18at 11:18; Start 09/19/18 at 11:18; Stop 09/19/18 at 21:17; Status DC Ciprofloxacin/ Dextrose 200 ml @ 200 mls/hr 1X ONCE IV Last administered on 09/19/18at 11:57; Start 09/19/18 at 11:30; Stop 09/19/18 at 12:29; Status DC Metronidazole 100 ml @ 100 mls/hr 1X ONCE IV Last administered on 09/19/18at 11:56; Start 09/19/18 at 11:30; Stop 09/19/18 at 12:29; Status DC Iohexol (Omnipaque 300 Mg/ml) 75 ml 1X ONCE IV Last administered on at 11:30; Start 09/19/18 at 11:30; Stop 09/19/18 at 11:31; Status DC Info (CONTRAST GIVEN -- Rx MONITORING) 1 each PRN DAILY PRN MC SEE COMMENTS; Start 09/19/18 at 11:45; Stop 09/21/18 at 11:44 Morphine Sulfate (Morphine Sulfate) 4 mg PRN Q2HR PRN IV PAIN Last administered on 09/19/18at 21:10; Start 09/19/18 at 14:15; Stop 09/20/18 at 14 :14 Dextrose/Lactated Ringer's 1,000 ml @ 125 mls/hr 1X ONCE IV ; Start 09/19/18 at 14:30; Stop 09/19/18 at 22:29; Status DC Propofol 20 ml @ As Directed STK-MED ONCE IV ; Start 09/19/18 at 15:07; Stop 09/19/18 at 15:08; Status DC Ondansetron HCl (Zofran) 4 mg STK-MED ONCE .ROUTE ; Start 09/19/18 at 15:07; Stop 09/19/18 at 15:08; Status DC Dexamethasone Sodium Phosphate (Decadron) 20 mg STK-MED ONCE .ROUTE ; Start at 15:07; Stop 09/19/18 at 15:08; Status DC Famotidine (Pepcid Vial) 20 mg STK-MED ONCE .ROUTE ; Start 09/19/18 at 15:07; Stop 09/19/18 at 15:08; Status DC Fentanyl Citrate (Fentanyl 2ml Vial) 100 mcg STK-MED ONCE .ROUTE ; Start at 15:07; Stop 09/19/18 at 15:08; Status DC Succinylcholine Chloride (Anectine) 200 mg STK-MED ONCE .ROUTE ; Start at 15:07; Stop 09/19/18 at 15:08; Status DC Lidocaine HCl (Xylocaine-Mpf 1% 5ml Vial) 5 ml STK-MED ONCE .ROUTE ; Start at 15:07; Stop 09/19/18 at 15:08; Status DC Bupivacaine HCl/ Epinephrine Bitart (Sensorcain-Mpf Epi 0.5%-[id number]) 30 ml STK -MED ONCE .ROUTE ; Start 09/19/18 at 14:16; Stop 09/19/18 at 15:17; Status DC Lidocaine HCl (Xylocaine-Mpf 1% 5ml Vial) 5 ml STK-MED ONCE .ROUTE ; Start at 15:29; Stop 09/19/18 at 15:30; Status DC Ondansetron HCl (Zofran) 4 mg PRN Q6HRS PRN IV NAUSEA/VOMITING 1ST CHOICE; Start 09/19/18 at 16:00 Prochlorperazine Edisylate (Compazine) 10 mg PRN Q6HRS PRN IV NAUSEA/VOMITING 2ND CHOICE; Start 09/19/18 at 16:00 Zolpidem Tartrate (Ambien) 5 mg PRN QHS PRN PO INSOMNIA, MAY REPEAT IN 1HR; Start 09/19/18 at 16:00 Acetaminophen/ Hydrocodone Bitart (Lortab 5/325) 1 tab PRN Q4HRS PRN PO MILD PAIN Last administered on 09/20/18at 04:34; Start 09/19/18 at 16:00 Acetaminophen/ Hydrocodone Bitart (Lortab 5/325) 2 tab PRN Q4HRS PRN PO MODERATE PAIN, SEVERE PAIN Last administered on 09/20/18at 10:15; Start at 16:00 Ketorolac Tromethamine (Toradol 30mg Vial) 30 mg PRN Q6HRS PRN IV MILD PAIN Last administered on 09/20/18at 04:33; Start 09/19/18 at 16:00; Stop 09/24/18 at 15:59 Acetaminophen (Tylenol) 650 mg PRN Q6HRS PRN PO Headaches, Temp > 101.5F; Start 09/19/18 at 16:00 Senna/Docusate Sodium (Senna Plus) 1 tab BID PO Last administered on at 08:18; Start 09/19/18 at 21:00 Magnesium Hydroxide (Milk Of Magnesia) 2,400 mg PRN Q12HR PRN PO CONSTIPATION 1ST CHOICE; Start 09/19/18 at 16:00 Lactulose (Lactulose) 20 gm PRN Q12HR PRN PO CONSTIPATION 2ND CHOICE; Start at 16:00 Heparin Sodium (Porcine) (Heparin Sodium) 5,000 unit Q8HRS SQ Last administered on 09/20/18at 06:48; Start 09/19/18 at 22:00 Desflurane (Suprane) 15 ml STK-MED ONCE IH ; Start 09/19/18 at 16:05; Stop at 16:06; Status DC Sodium Chloride (Normal Saline Flush) 3 ml QSHIFT PRN IV AFTER MEDS AND BLOOD DRAWS; Start 09/19/18 at 16:15 Acetaminophen/ Hydrocodone Bitart (Lortab 5/325) 1 tab PRN Q4HRS PRN PO MILD PAIN; Start 09/19/18 at 16:15; Status UNV Morphine Sulfate (Morphine Sulfate) 1 mg PRN Q1HR PRN IV PAIN; Start 09/19/18 at 16:15 Docusate Sodium (Colace) 100 mg BID PO Last administered on 09/20/18at 08:18; Start 09/19/18 at 21:00 Ondansetron HCl (Zofran) 4 mg PRN Q6HRS PRN IV NAUESA, 1ST CHOICE; Start 09/19 at 16:15; Status UNV Active Scripts Active Keflex (Cephalexin) 500 Mg Capsule 500 Mg PO QID 7 Days Colace (Docusate Sodium) 100 Mg Capsule 100 Mg PO BID 14 Days Hydrocodone-Apap 5-325 (Hydrocodone Bit/Acetaminophen) 1 Each Tablet 1 Tab PO PRN Q4HRS PRN 10 Days Vital Signs Vital Signs Date Time Temp Pulse Resp B/P (MAP) Pulse Ox O2 Delivery O2 Flow Rate FiO2 09/20/18 11:15 Room Air 09/20/18 11:00 98.0 91 18 123/70 (87) 95 98.0 Labs Laboratory Tests Test 09/19/18 11:18 09/20/18 05:05 White Blood Count 11.9 x10^3/uL (4.0-11.0) 12.9 x10^3/uL (4.0-11.0) Red Blood Count 4.29 x10^6/uL (4.30-5.70) 4.10 x10^6/uL (4.30-5.70) Hemoglobin 14.2 g/dL (13.0-17.5) 13.4 g/dL (13.0-17.5) Hematocrit 41.8 % (39.0-53.0) 40.1 % (39.0-53.0) Mean Corpuscular Volume 98 fL (79-100) 98 fL (79-100) Mean Corpuscular Hemoglobin 33 pg (25-35) 33 pg (25-35) Mean Corpuscular Hemoglobin Concent 34 g/dL (31-37) 34 g/dL (31-37) Red Cell Distribution Width 13.8 % (11.5-14.5) 13.9 % (11.5-14.5) Platelet Count 305 x10^3/uL (140-400) 305 x10^3/uL (140-400) Neutrophils (%) (Auto) 75 % (31-73) 82 % (31-73) Lymphocytes (%) (Auto) 13 % (24-48) 11 % (24-48) Monocytes (%) (Auto) 8 % (0-9) 8 % (0-9) Eosinophils (%) (Auto) 3 % (0-3) 0 % (0-3) Basophils (%) (Auto) 1 % (0-3) 0 % (0-3) Neutrophils # (Auto) 8.9 x10^3uL (1.8-7.7) 10.6 x10^3uL (1.8-7.7) Lymphocytes # (Auto) 1.6 x10^3/uL (1.0-4.8) 1.4 x10^3/uL (1.0-4.8) Monocytes # (Auto) 0.9 x10^3/uL (0.0-1.1) 1.0 x10^3/uL (0.0-1.1) Eosinophils # (Auto) 0.3 x10^3/uL (0.0-0.7) 0.0 x10^3/uL (0.0-0.7) Basophils # (Auto) 0.1 x10^3/uL (0.0-0.2) 0.0 x10^3/uL (0.0-0.2) Sodium Level 138 mmol/L (136-145) Potassium Level 3.2 mmol/L (3.5-5.1) Chloride Level 97 mmol/L (98-107) Carbon Dioxide Level 30 mmol/L (21-32) Anion Gap 11 (6-14) Blood Urea Nitrogen 19 mg/dL (8-26) Creatinine 1.6 mg/dL (0.7-1.3) Estimated GFR (Cockcroft-Gault) 46.8 BUN/Creatinine Ratio 12 (6-20) Glucose Level 106 mg/dL (70-99) Calcium Level 9.6 mg/dL (8.5-10.1) Total Bilirubin 0.6 mg/dL (0.2-1.0) Aspartate Amino Transf (AST/SGOT) 14 U/L (15-37) Alanine Aminotransferase (ALT/SGPT) 24 U/L (16-63) Alkaline Phosphatase 80 U/L (46-116) Total Protein 8.0 g/dL (6.4-8.2) Albumin 3.1 g/dL (3.4-5.0) Albumin/Globulin Ratio 0.6 (1.0-1.7) Laboratory Tests Test 09/20/18 05:05 White Blood Count 12.9 x10^3/uL (4.0-11.0) Red Blood Count 4.10 x10^6/uL (4.30-5.70) Hemoglobin 13.4 g/dL (13.0-17.5) Hematocrit 40.1 % (39.0-53.0) Mean Corpuscular Volume 98 fL (79-100) Mean Corpuscular Hemoglobin 33 pg (25-35) Mean Corpuscular Hemoglobin Concent 34 g/dL (31-37) Red Cell Distribution Width 13.9 % (11.5-14.5) Platelet Count 305 x10^3/uL (140-400) Neutrophils (%) (Auto) 82 % (31-73) Lymphocytes (%) (Auto) 11 % (24-48) Monocytes (%) (Auto) 8 % (0-9) Eosinophils (%) (Auto) 0 % (0-3) Basophils (%) (Auto) 0 % (0-3) Neutrophils # (Auto) 10.6 x10^3uL (1.8-7.7) Lymphocytes # (Auto) 1.4 x10^3/uL (1.0-4.8) Monocytes # (Auto) 1.0 x10^3/uL (0.0-1.1) Eosinophils # (Auto) 0.0 x10^3/uL (0.0-0.7) Basophils # (Auto) 0.0 x10^3/uL (0.0-0.2) Allergies Allergies Coded Allergies Type Severity Reaction Last Updated Verified No Known Drug Allergies 09/19/18 No Disposition/Orders: D/C to Home Patient Instructions d/c planning 30 min BRITNI TIAN MD Sep 20, 2018 14:00
== END 2018-09-20 14:15 | disposition home or self-care (01) | DRG 330 ==
LOC: ER 10:42 → 5 NORTH 14:00 → 4 NORTH 15:23
PROVIDERS: ADMIT Internal Medicine; ATTEND Internal Medicine
PROC: 0D9P00Z Drainage of Rectum with Drainage Device, Open Approach (ICD-10-PCS; principal; 2018-09-19 15:30)
DX: K61.1 Rectal abscess (principal); L02.215 Cutaneous abscess of perineum; Z68.41 Body mass index [BMI] 40.0-44.9, adult; I10 Essential (primary) hypertension; E66.01 Morbid (severe) obesity due to excess calories; R73.03 Prediabetes; Z87.891 Personal history of nicotine dependence; Z80.43 Family history of malignant neoplasm of testis; Z82.49 Family history of ischemic heart disease and other diseases of the circulatory system; Z80.3 Family history of malignant neoplasm of breast
CPT/HCPCS: 36415; 74170; 80053; 85025; 87071; 87075; 87186; 96365; 96366; 96368; J0330; J0744; J1100; J1644; J1885; J2270; J2405; J2704; J3010; J3490; J7030; J7120; Q9967; 99285-25; A4461